=== PATIENT | female | born 1945 ===

== ENCOUNTER 2021-12-25 12:16 | Emergency (ER) | payer MEDICARE, BC | END 2021-12-25 12:43 | disposition home or self-care (01) | LOC: ERS 12:16 | DX: Z20.822 Contact with and (suspected) exposure to COVID-19 (principal) | CPT/HCPCS: 99283; U0003; U0005 ==

== ENCOUNTER 2024-05-02 13:42 | Outpatient (CLI) | payer MEDICARE ==
[~2024-05-02 13:42] MED LIST: Magnevist 469MG/ML 20 ML VIAL ONE
== END 2024-05-02 13:43 | disposition home or self-care (01) ==
LOC: MRI 13:42
PROVIDERS: ATTEND Psychiatry & Neurology Neurology
DX: R41.3 Other amnesia (principal); I67.82 Cerebral ischemia
CPT/HCPCS: 70553; 76376